=== PATIENT | male | born 1980 | race Caucasian/White ===

== ENCOUNTER → 2018-07-02 | Outpatient (CLI) | payer BC ==
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
--- NOTE | 2018-07-02 12:46 | KCIC ---
EXAM: MRI RIGHT KNEE DATE: 07/02/2018 11:45 AM CLINICAL INDICATION: Injury one month ago with continued right lateral knee pain. COMPARISON: None. TECHNIQUE: Multiplanar, multisequence MRI of the right knee was performed without contrast. FINDINGS: Small right knee joint effusion. Small Wynne's cyst. ACL and PCL are intact. The MCL is intact. The fibular collateral ligament, biceps femoris and IT band are intact. The popliteus is normal in signal and morphology, intact. Extensor mechanism is intact. Neutral patellar tracking. Medial meniscus: Intact Lateral meniscus: Intact No definite full-thickness cartilage defect is identified. Mild chondral thinning lateral tibial plateau. No evidence for fracture or osteonecrosis. IMPRESSION: 1. Mild chondral thinning and irregularity lateral tibial plateau. 2. Small Wynne's cyst. 3. Otherwise, no evidence for internal derangement of the right knee. Electronically signed by: Jair Beth MD (07/02/2018 12:43 PM) [email or web address]
== END | disposition home or self-care (01) ==
LOC: KCIC MRI 11:08
PROVIDERS: ATTEND Orthopaedic Surgery
DX: M25.461 Effusion, right knee (principal); M71.21 Synovial cyst of popliteal space [Baker], right knee
CPT/HCPCS: 73030; 73721